=== PATIENT | male | born 1945 | race Caucasian/White ===

== ENCOUNTER 2019-02-07 22:04 | Inpatient (IN) | payer MEDICARE, MEDICAID ==
[~2019-02-07] VITALS: Ht 172.7 cm; Wt 90.7 kg
--- NOTE | 2019-02-07 22:21 | NUR ---
Dr. Murphy at bedside for MSE.
[2019-02-07] MEDS ORDERED: IV NORMAL SALINE 500 ML BAG IV ONE (22:30)
--- NOTE | 2019-02-07 22:30 | NUR ---
Pt's son, Taty, called left phone number
--- NOTE | 2019-02-07 22:35 | NUR ---
Xray at bedside.
[2019-02-07] MEDS ORDERED: MIRT15TA7 PO (22:36)
[2019-02-07] MEDS ORDERED: NA P133E RC (22:36)
[2019-02-07] MEDS ORDERED: MAGN400O6 PO (22:36)
[2019-02-07] MEDS ORDERED: DOCU-141 PO (22:36)
[2019-02-07] MEDS ORDERED: ASPI-1094 PO (22:36)
[2019-02-07] MEDS ORDERED: METF-442 PO (22:36)
[2019-02-07] MEDS ORDERED: ZOLP5TAB2 PO (22:36)
[2019-02-07] MEDS ORDERED: ACET325T53 PO (22:36)
[2019-02-07] MEDS ORDERED: MULT1TAB73 PO (22:36)
[2019-02-07] MEDS ORDERED: BENA10TA11 PO (22:36)
[2019-02-07] MEDS ORDERED: CRAN3875 PO (22:36)
[2019-02-07] MEDS ORDERED: POLY17PO4 PO (22:36)
[2019-02-07] MEDS ORDERED: LINA5TAB PO (22:36)
[2019-02-07] MEDS ORDERED: NITR0.4T48 SL (22:36)
[2019-02-07] MEDS ORDERED: CLOP75TA15 PO (22:36)
[2019-02-07] MEDS ORDERED: ISOS30TA6 PO (22:36)
[2019-02-07] MEDS ORDERED: FOLI0.4T2 PO (22:36)
[2019-02-07] MEDS ORDERED: PANT20TA2 PO (22:36)
[2019-02-07] MEDS ORDERED: METO25TA6 PO (22:36)
[2019-02-07] MEDS ORDERED: QUET50TA PO (22:36)
[2019-02-07] MEDS ORDERED: SIMV-46 PO (22:36)
[2019-02-07] MEDS ORDERED: INSU3INS6 SQ (22:36)
[2019-02-07] MEDS ORDERED: QUET25TA PO (22:36)
[2019-02-07 22:38] LABS: BASOPHILS # (AUTO) 0.1 K/uL (0.0-8.0); BASOPHILS % (AUTO) 0.7 % (0.0-2.0); EOSINOPHILS # (AUTO) 0.2 K/uL (0.0-0.7); EOSINOPHILS % (AUTO) 1.4 % (0.0-7.0); HEMATOCRIT 34.8 % (36.7-47.1); HEMOGLOBIN 11.4 g/dL (12.5-16.3); LYMPHOCYTES # (AUTO) 1.8 K/uL (20.0-40.0); LYMPHOCYTES % (AUTO) 14.9 % (20.5-51.5); MEAN CORPUSCULAR HGB CONC 33 g/dL (32.5-36.3); MEAN CORPUSCULAR VOLUME 76.4 fL (73.0-96.2); MONOCYTES # (AUTO) 1.1 K/uL (2.0-10.0); MONOCYTES % (AUTO) 9.1 % (0.0-11.0); NEUTROPHILS % (AUTO) 73.9 % (38.5-71.5); PLATELET COUNT (AUTO) 268 K/uL (152-348); RED BLOOD CELL COUNT(AUTO) 4.55 MIL/uL (4.06-5.63); WHITE BLOOD COUNT (AUTO) 12.2 K/uL (3.6-10.2)
[2019-02-07 22:57] LABS: CARBON DIOXIDE 28 mmol/L (21-32); CHLORIDE 100 mmol/L (98-107); CREATININE 1.5 mg/dL (0.6-1.3); GLUCOSE 281 mg/dL (74-106); POTASSIUM 4.1 mmol/L (3.5-5.1); UREA NITROGEN, BLOOD 21 mg/dL (7-18)
[2019-02-07] MEDS ORDERED: PIPERACILLIN/TAZOBACTAM/D5W 50 ML IV ONE (22:58)
[2019-02-07] MEDS ORDERED: AZITHROMYCIN 500MG/ D5W 250ML IVPB **ER PYXIS ONLY IV ONE (22:59)
[2019-02-07] MEDS ORDERED: AZITHROMYCIN IV 500 MG in IV DEXTROSE 5% 250 ML IV ONE (23:00)
[2019-02-07] MEDS ORDERED: PIPERACILLIN SODIUM/TAZOBACTAM 3.375 G in IV DEXTROSE 5% 50 ML IV ONE (23:00)
[2019-02-07 23:10] LABS: ALANINE AMINOTRANSFERASE 23 U/L (16-63); ALKALINE PHOSPHATASE 100 U/L (50-136); ASPARTATE AMINOTRANSFERASE 9 U/L (15-37); BILIRUBIN,DIRECT 0.1 mg/dL (0.0-0.2); BILIRUBIN,TOTAL 0.3 mg/dL (0.2-1.0)
--- NOTE | 2019-02-07 23:19 | NUR ---
Dr. Murphy speaking with Dr. Ho Gramajo. Patient accepted for admission to [facility], diagnosis: pneumonia.
--- NOTE | 2019-02-07 23:31 | NUR ---
Report given to Andres OVALLES Tele.
[2019-02-08 00:30] VITALS: BP 128/65
--- NOTE | 2019-02-08 00:37 | NUR ---
patient is in the room, tele box connected
[2019-02-08] MEDS ORDERED: PIPERACILLIN/TAZOBACTAM/D5W 50 ML IV ONE (01:35)
[2019-02-08 05:22] VITALS: BP 118/65
[2019-02-08] MEDS ORDERED: PIPERACILLIN SODIUM/TAZOBACTAM 3.375 G in IV DEXTROSE 5% 50 ML IV SCH ×2 (06:00→12:00)
[2019-02-08] MEDS ORDERED: NITROGLYCERIN 0.4 MG/TAB BOTTLE SL PRN (07:15)
[2019-02-08] MEDS ORDERED: ACETAMINOPHEN 325 MG TABLET PO PRN (07:15)
[2019-02-08] MEDS ORDERED: MAGNESIUM HYDROXIDE 30 ML LIQUID UDC PO PRN (07:15)
[2019-02-08] MEDS ORDERED: FLEET ENEMA 133 ML BOTTLE RC PRN (07:15)
--- NOTE | 2019-02-08 08:06 | NUR ---
RECEIVED PT RESTING IN BED. NO ACUTE DISTRESS NOTED. NO SOB NOTED. PT ON TELE MONITORING SINUS RHYTHM. BED LOCKED IN LOW POSITION. WILL CONTINUE TO MONITOR.
[2019-02-08] MEDS ORDERED: Medication Not On Formulary EA (Cran/Vitc/Mannose/Inulin/Brom (Uti-Stat Liquid) 3,875 MG PO SCH (09:00)
[2019-02-08] MEDS ORDERED: FOLIC ACID 0.4 MG TABLET PO SCH (09:00)
[2019-02-08] MEDS: DOCUSATE SODIUM 100 MG CAPSULE PO SCH ×2 (10:17→17:02)
[2019-02-08] MEDS: CLOPIDOGREL 75 MG TABLET PO SCH (10:17)
[2019-02-08] MEDS: ASPIRIN 81 MG TAB.CHEW PO SCH (10:19)
[2019-02-08] MEDS: QUETIAPINE FUMARATE 25 MG TABLET PO SCH ×4 (10:19→20:57)
[2019-02-08] MEDS: LINAGLIPTIN 5 MG TABLET PO SCH (10:20)
[2019-02-08] MEDS: PANTOPRAZOLE SODIUM 40 MG TABLET.DR PO SCH (10:20)
[2019-02-08] MEDS: ISOSORBIDE MONONITRATE 30 MG TAB.SR.24H PO SCH (10:20)
[2019-02-08] MEDS: FOLIC ACID 1 MG TABLET PO SCH (10:20)
[2019-02-08] MEDS: MULTIVITAMINS,THERAPEUTIC TABLET PO SCH (10:20)
[2019-02-08] MEDS: MIRALAX 17 GM POWD.PACK PO SCH (10:22)
[2019-02-08] MEDS: METFORMIN HCL 500 MG TABLET PO SCH (10:26)
[2019-02-08] MEDS: METOPROLOL TARTRATE 25 MG TABLET PO SCH (10:27)
[2019-02-08] MEDS: BENAZEPRIL HCL 10 MG TABLET PO SCH (10:27)
[2019-02-08 10:59] VITALS: BP 139/114
--- NOTE | 2019-02-08 12:07 | NUR ---
PT RESTING COMFORTABLY IN BED. SITTER AT BEDSIDE. NO ACUTE DISTRESS OR SOB NOTED. PT IS MEDICATION AND DIET COMPLIANT. BED LOCKED AND IN LOW POSITION. PT ON TELE MONITORING WITH SINUS RHYTHM. WILL CONTINUE TO MONITOR.
[2019-02-08] MEDS: PIPERACILLIN/TAZOBACTAM/D5W 3.375 G in PREMIXED 1 EACH IV SCH ×2 (14:19→21:09)
[2019-02-08 15:16] VITALS: BP 127/57
--- NOTE | 2019-02-08 18:24 | NUR ---
PT IS RESTING COMFORTABLY IN BED. PT IS DIET AND MED COMPLIANT. NO SIGNS OF PAIN AT THIS TIME. AND SON AT BEDSIDE. NO ACUTE DISTRESS OR SOB NOTED AT THIS TIME. BED LOCKED AND IN LOW POSITION. PT ON TELE MONITOR WITH SINUS RHYTHM. WILL GIVE REPORT ACCORDINGLY.
--- NOTE | 2019-02-08 20:00 | NUR ---
N.o from Dr. Adrian for Accu-check ACHS w/ mild sliding scale, noted and carried out
[2019-02-08] MEDS ORDERED: DEXTROSE 50% 50 ML DISP.SYRIN IV PRN (20:15)
[2019-02-08 20:43] VITALS: BP 90/52
[2019-02-08] MEDS: CULTURELLE CAPSULE PO SCH (20:57)
[2019-02-08] MEDS: SIMVASTATIN 20 MG TABLET PO SCH (20:57)
[2019-02-08] MEDS: MIRTAZAPINE 15 MG TABLET PO SCH (20:57)
[2019-02-08] MEDS ORDERED: ZOLPIDEM 5 MG TABLET PO PRN (21:00)
[2019-02-08] MEDS: BLOOD SUGAR DIAGNOSTIC 1 EACH STRIP VI SCH (21:06)
[2019-02-08] MEDS: INSULIN GLARGINE,HUM 300 UNITS/3 ML CARTRIDGE SQ SCH (21:07)
[2019-02-08] MEDS: INSULIN REGULAR, HUMAN 300 UNIT/3 ML VIAL SQ PRN (21:09)
[2019-02-08 21:15] VITALS: BP 115/64
[2019-02-08] MEDS: AZITHROMYCIN IV 500 MG in IV DEXTROSE 5% 250 ML IV SCH (23:50)
[2019-02-09 00:23] VITALS: BP 138/69
[2019-02-09 04:38] LABS: *BILIRUBIN,URIN NEGATIVE (NEGATIVE); *BLOOD, URINE 1+ (NEGATIVE); *CLARITY,URINE CLEAR (CLEAR); *COLOR,URINE YELLOW (YELLOW); *KETONES,URINE NEGATIVE (NEGATIVE); *UROBILINOGEN,URINE 0.2 E.U./dl (NORMAL); LEUKOCYTE ESTERASE ,URINE NEGATIVE (NEGATIVE); NITRITE, URINE NEGATIVE (NEGATIVE); UGLUCOSE NEGATIVE (NEGATIVE)
[2019-02-09 04:49] LABS: *CREATININE,URINE 79.3 mg/dL (30-125); *URINE TOTAL PROTEIN RANDOM 43.5 mg/dL (<150/24HR)
[2019-02-09 04:50] LABS: BACTERIA,URINE NONE SEEN /HPF (NONE SEEN); MUCUS,URINE FEW /LPF (0-FEW); SQUAMOUS EPITHELIAL CELL,UR FEW /HPF (NONE SEEN); WBC,URINE 0-3 /HPF (0-3)
[2019-02-09 05:00] VITALS: BP 113/57
[2019-02-09] MEDS: PIPERACILLIN/TAZOBACTAM/D5W 3.375 G in PREMIXED 1 EACH IV SCH ×3 (05:04→21:21)
[2019-02-09] MEDS: PANTOPRAZOLE SODIUM 40 MG TABLET.DR PO SCH (06:26)
[2019-02-09] MEDS: BLOOD SUGAR DIAGNOSTIC 1 EACH STRIP VI SCH ×4 (06:36→20:41)
--- NOTE | 2019-02-09 06:51 | NUR ---
Patient slept well through out the night. No complaints of pain. SR on Tele monitor. Will endorse accordingly
--- NOTE | 2019-02-09 07:30 | NUR ---
Awake, confused, non verbal, not in distress. With family at bedside.
[2019-02-09] MEDS: ASPIRIN 81 MG TAB.CHEW PO SCH (09:15)
[2019-02-09] MEDS: METFORMIN HCL 500 MG TABLET PO SCH (09:15)
[2019-02-09] MEDS: CULTURELLE CAPSULE PO SCH ×2 (09:16→20:36)
[2019-02-09] MEDS: DOCUSATE SODIUM 100 MG CAPSULE PO SCH ×2 (09:16→17:00)
[2019-02-09] MEDS: FOLIC ACID 1 MG TABLET PO SCH (09:17)
[2019-02-09] MEDS: ISOSORBIDE MONONITRATE 30 MG TAB.SR.24H PO SCH (09:20)
[2019-02-09] MEDS: BENAZEPRIL HCL 10 MG TABLET PO SCH (09:21)
[2019-02-09] MEDS: METOPROLOL TARTRATE 25 MG TABLET PO SCH (09:21)
[2019-02-09] MEDS: MIRALAX 17 GM POWD.PACK PO SCH (09:21)
[2019-02-09] MEDS: MULTIVITAMINS,THERAPEUTIC TABLET PO SCH (09:22)
[2019-02-09] MEDS: LINAGLIPTIN 5 MG TABLET PO SCH (09:22)
[2019-02-09] MEDS: CLOPIDOGREL 75 MG TABLET PO SCH (09:22)
[2019-02-09] MEDS: QUETIAPINE FUMARATE 25 MG TABLET PO SCH ×4 (09:22→20:36)
--- NOTE | 2019-02-09 11:00 | NUR ---
Incontinence care. Repositioned comfortably
--- NOTE | 2019-02-09 12:00 | NUR ---
Received hand off report from CHARLETTE Gonzalez. Patient awake in bed. AAOx1. Nonverbal. at bedside. In no acute distress. Safety measures implemented. Call light within reach. Will continue to monitor.
[2019-02-09 12:03] VITALS: BP 120/69
[2019-02-09] MEDS: INSULIN REGULAR, HUMAN 300 UNIT/3 ML VIAL SQ PRN ×2 (12:36→20:54)
[2019-02-09 16:06] VITALS: BP 142/56
--- NOTE | 2019-02-09 18:24 | NUR ---
Patient resting in bed comfortably at this time. No s/s of acute distress. Held ordered 1700 [address] because patient had x2 BM this AM shift. Comfort provided at all times. Will endorse care accordingly.
[2019-02-09 20:02] VITALS: BP 110/61
[2019-02-09] MEDS: SIMVASTATIN 20 MG TABLET PO SCH (20:36)
[2019-02-09] MEDS: MIRTAZAPINE 15 MG TABLET PO SCH (20:36)
[2019-02-09] MEDS: INSULIN GLARGINE,HUM 300 UNITS/3 ML CARTRIDGE SQ SCH (20:54)
[2019-02-09] MEDS: AZITHROMYCIN IV 500 MG in IV DEXTROSE 5% 250 ML IV SCH (23:09)
[2019-02-10] VITALS: BP 135/66
[2019-02-10 04:40] VITALS: BP 112/72
[2019-02-10] MEDS: PIPERACILLIN/TAZOBACTAM/D5W 3.375 G in PREMIXED 1 EACH IV SCH ×2 (05:20→12:13)
[2019-02-10] MEDS: PANTOPRAZOLE SODIUM 40 MG TABLET.DR PO SCH (06:24)
[2019-02-10] MEDS: BLOOD SUGAR DIAGNOSTIC 1 EACH STRIP VI SCH ×2 (06:31→12:07)
--- NOTE | 2019-02-10 06:50 | NUR ---
Patient slept well. No changes noted. SR on Tele monitor. Will endorse accordingly
[2019-02-10] MEDS ORDERED: PIPE3.376 IV (07:55)
--- NOTE | 2019-02-10 08:00 | NUR ---
Received patient asleep in bed. No s/s of acute distress. Safety measures implemented. Will continue to monitor.
[2019-02-10] MEDS: METFORMIN HCL 500 MG TABLET PO SCH (08:11)
[2019-02-10] MEDS: BENAZEPRIL HCL 10 MG TABLET PO SCH (08:12)
[2019-02-10] MEDS: CULTURELLE CAPSULE PO SCH (08:12)
[2019-02-10] MEDS: MULTIVITAMINS,THERAPEUTIC TABLET PO SCH (08:12)
[2019-02-10] MEDS: LINAGLIPTIN 5 MG TABLET PO SCH (08:12)
[2019-02-10] MEDS: CLOPIDOGREL 75 MG TABLET PO SCH (08:13)
[2019-02-10] MEDS: QUETIAPINE FUMARATE 25 MG TABLET PO SCH ×2 (08:13→12:07)
[2019-02-10] MEDS: FOLIC ACID 1 MG TABLET PO SCH (08:13)
[2019-02-10] MEDS: ASPIRIN 81 MG TAB.CHEW PO SCH (08:13)
[2019-02-10] MEDS: ISOSORBIDE MONONITRATE 30 MG TAB.SR.24H PO SCH (08:14)
[2019-02-10] MEDS: METOPROLOL TARTRATE 25 MG TABLET PO SCH (08:14)
[2019-02-10] MEDS: DOCUSATE SODIUM 100 MG CAPSULE PO SCH (08:16)
[2019-02-10] MEDS: MIRALAX 17 GM POWD.PACK PO SCH (08:16)
[2019-02-10 08:59] LABS: CARBON DIOXIDE 28 mmol/L (21-32)
[2019-02-10 09:00] LABS: CREATININE 1.3 mg/dL (0.6-1.3); GLUCOSE 92 mg/dL (74-106)
[2019-02-10 09:01] LABS: ALANINE AMINOTRANSFERASE 25 U/L (16-63); ALKALINE PHOSPHATASE 75 U/L (50-136); ASPARTATE AMINOTRANSFERASE 7 U/L (15-37); BILIRUBIN,TOTAL 0.5 mg/dL (0.2-1.0); CHLORIDE 101 mmol/L (98-107); POTASSIUM 4.3 mmol/L (3.5-5.1); TOTAL PROTEIN, SERUM 7.6 g/dL (6.4-8.2); UREA NITROGEN, BLOOD 3 mg/dL (7-18)
[2019-02-10 09:03] LABS: HEMOGLOBIN 13.2 G/DL (14.0-18.0); WHITE BLOOD COUNT (AUTO) 11.8 K/UL (4.0-11.2)
[2019-02-10 09:04] LABS: BASOPHILS % (AUTO) 0.6 % (0.0-2.0); EOSINOPHILS % (AUTO) 1.7 % (0.0-7.0); HEMATOCRIT 40.9 % (40-50); LYMPHOCYTES # (AUTO) 1.8 K/UL (0.8-4.8); LYMPHOCYTES % (AUTO) 15.1 % (20.5-51.5); MEAN CORPUSCULAR HGB CONC 32 g/dL (32.0-37.0); MEAN CORPUSCULAR VOLUME 77.2 FL (82.0-92.0); MONOCYTES % (AUTO) 8.5 % (0.0-11.0); NEUTROPHILS # (AUTO) 8.8 K/UL (1.8-8.9); NEUTROPHILS % (AUTO) 74.1 % (38.5-71.5); PLATELET COUNT (AUTO) 337 K/UL (150-450)
[2019-02-10 09:05] LABS: BASOPHILS # (AUTO) 0.1 K/uL (0.0-8.0); EOSINOPHILS # (AUTO) 0.2 K/uL (0.0-0.7)
[2019-02-10 09:12] LABS: MAGNESIUM 2.2 mg/dL (1.8-2.4); PHOSPHOROUS 4.1 mg/dL (2.5-4.9)
[2019-02-10 11:02] VITALS: BP 111/61
[2019-02-10] MEDS: INSULIN REGULAR, HUMAN 300 UNIT/3 ML VIAL SQ PRN (12:11)
--- NOTE | 2019-02-10 13:20 | NUR ---
Discharge orders in place to go back to [facility]. No SOB noted. No s/s of acute distress. VS WNL. at bedside. Discussed plan of care; verbalized understanding. Exit care provided. Education given regarding importance of continuity of care and medication. Receiving facility called and report given. New IV on L hand #22 inserted for continuation of antibiotics for x3 days. ID band removed. D/c via ambulance to SNF.
[2019-02-10 15:12] VITALS: BP 131/58
[2019-02-14 05:09] LABS: A/G RATIO 0.7 (0.7-1.7); ALBUMIN 2.9 g/dL (2.9-4.4); ALPHA-1-GLOBULIN 0.3 g/dL (0.0-0.4); ALPHA-2-GLOBULIN 1.3 g/dL (0.4-1.0); GAMMA GLOBULIN 1.4 g/dL (0.4-1.8); M-SPIKE Not Observed g/dL (Not Observed)
== END 2019-02-10 13:20 | DRG 177 ==
LOC: ER 22:09 → TELE3 23:51
PROVIDERS: ADMIT Internal Medicine; ATTEND Internal Medicine
DX: J69.0 Pneumonitis due to inhalation of food and vomit (principal); N17.0 Acute kidney failure with tubular necrosis; J91.8 Pleural effusion in other conditions classified elsewhere; I25.10 Atherosclerotic heart disease of native coronary artery without angina pectoris; Z95.1 Presence of aortocoronary bypass graft; G30.9 Alzheimer's disease, unspecified; F02.80 Dementia in other diseases classified elsewhere, unspecified severity, without behavioral disturbance, psychotic disturbance, mood disturbance, and anxiety; E78.5 Hyperlipidemia, unspecified; K21.9 Gastro-esophageal reflux disease without esophagitis; Z79.02 Long term (current) use of antithrombotics/antiplatelets; I11.9 Hypertensive heart disease without heart failure; E11.9 Type 2 diabetes mellitus without complications; Z79.4 Long term (current) use of insulin; Z79.899 Other long term (current) drug therapy; D64.9 Anemia, unspecified; I67.9 Cerebrovascular disease, unspecified
CPT/HCPCS: 36415; 70030-TC; 71045; 76770; 83735; 83970; 84100; 84155; 84156; 84165; 84300; 85025; 87040; 93005; 93307; A4663; G0378; J0456; J1815; J2543; J7040; J7060